=== PATIENT | male | born 1960 | race Caucasian/White ===

== ENCOUNTER 2018-01-15 15:00 | Emergency (ER) | payer OTHER ==
[~2018-01-15] VITALS: Ht 172.7 cm; Wt 100.0 kg
[~2018-01-15 15:00] MED LIST: ORPH100T2 PO; PRED10PA2 PO
[2018-01-15 15:19] VITALS: BP 147/76; PULSE 82; RESP 16; TEMP 98.4; O2SAT 98
--- NOTE | 2018-01-15 16:27 | RADRPT ---
EXAM DATE/TIME: 01/15/2018 15:44 [place] COMPARISON: No previous studies available for comparison. INDICATIONS : Pain in left ankle, bruising to medial and lateral portions of ankle. MEDICAL HISTORY : None. SURGICAL HISTORY : None. ENCOUNTER: Initial ACUITY: 1 day PAIN SCORE: 6/10 LOCATION: Left ankle FINDINGS: Three view exam was performed of the left ankle. Talocalcaneal screw fixation with associated bony re modeling. No acute bone fracture is noted. Mild degenerative changes of the talonavicular joint. Join t spaces are otherwise maintained. Soft tissue prominence overlying the dorsum of the foot. CONCLUSION: 1. Postsurgical features of talocalcaneal screw fixation, as above. 2. No acute fracture or dislocation. Samir Marie MD on January 15, 2018 at 16:21 Board Certified Radiologist. This report was verified electronically.
[2018-01-15] MEDS ORDERED: CALC1TAB12 PO (18:05)
[2018-01-15] MEDS ORDERED: ANDR1.62 TOPICAL (18:05)
[2018-01-15] MEDS ORDERED: IBUP-232 PO (18:05)
[2018-01-15] MEDS ORDERED: AMLO10TA2 PO (18:05)
[2018-01-15] MEDS ORDERED: LISI10TA3 PO (18:05)
[2018-01-15] MEDS ORDERED: MORP1TAB25 PO (18:05)
[2018-01-15] MEDS ORDERED: HYDR-3366 PO (18:05)
[2018-01-15] MEDS ORDERED: ASPI-516 CHEW (18:05)
[2018-01-15] MEDS ORDERED: ATOR10TA15 PO (18:05)
[2018-01-15] MEDS ORDERED: GABA600T PO (18:05)
[2018-01-15 18:06] VITALS: BP 144/75; PULSE 83; RESP 15; TEMP 98.1; O2SAT 100
--- NOTE | 2018-01-15 18:21 | PD ---
HPI Chief Complaint: Pain: Acute or Chronic Time Seen by Provider: 18:01 Travel History International Travel<30 days: No Contact w/Intl Traveler<30days: No Traveled to known affect area: No History of Present Illness HPI 57-year-old male presents emergency department for evaluation of left ankle pain that is been persistent since Tuesday. States that his ankle actually started swelling Tuesday and became tender . Says that the medial aspect of the ankle became dark and bruised appearing so he decided to come to emergency department for evaluation. Says he does have some mild pain associated with swelling. No palliative or provocative factors. Patient does not remember any inciting events. Denies any injury. Says he does have a history of surgery to the ankle denies any complications as a result. Denies shortness of breath or chest pain. Says that he normally walks with a cane. Patient is able to flex and extend his ankle but says he is normally unable to perform lateral rotation of his ankle. He denies any numbness or tingling. PFSH Past Medical History Arthritis: Yes Heart Rhythm Problems: No Cardiac Catheterization: No Cardiovascular Problems: Yes High Cholesterol: Yes Congestive Heart Failure: No Diabetes: No Headaches: Yes (RELATED TO NECK) Hypertension: Yes Neurologic: Yes (neck sx) Past Surgical History Abdominal Surgery: Yes (APPENDECTOMY) Appendectomy: Yes (AT 9 YEARS OF AGE) Coronary Artery Bypass Graft: No Other Surgery: Yes (RECTAL FISTULA REPAIRED X 2-2002, 3004) Social History Alcohol Use: No Tobacco Use: No Substance Use: No Allergies-Medications (Allergen,Severity, Reaction): Coded Allergies: No Known Allergies (Verified Adverse Reaction, Unknown, 01/15/18) Reported Meds & Prescriptions Reported Meds & Active Scripts Active Orphenadrine CR (Orphenadrine Citrate) 100 Mg Tab 100 Mg PO Q12HR Prednisone (48) 10 mg tab Dose Pack (Prednisone) 10 Mg Dspk 10 Mg PO DIRECTED Reported Calcium 500 +D (Calcium Carbonate-Cholecalciferol) 500-400 Mg-Unit Tab 1 Tab PO BID Aspirin 81 Mg Chew 81 Mg CHEW DAILY Atorvastatin (Atorvastatin Calcium) 10 Mg Tab 10 Mg PO HS Ibuprofen 600 Mg Tab 600 Mg PO TID Gabapentin 600 Mg Tab 600 Mg PO TID Androgel Pump Topical (Testosterone) 20.25/1.25 Gel 20.25 Mg TOPICAL DAILY [facility] (Hydrocodone-Acetaminophen) 10-325 Mg Tab 1 Tab PO Q6H PRN Morphine ER (Morphine Sulfate) 30 Mg Tab 30 Mg PO BID Amlodipine (Amlodipine Besylate) 10 Mg Tab 10 Mg PO DAILY Lisinopril 10 Mg Tab 10 Mg PO DAILY Review of Systems Except as stated in HPI: all other systems reviewed are Neg Physical Exam Narrative GENERAL: Well-nourished, well-developed patient. SKIN: Focused skin assessment warm/dry. HEAD: Normocephalic. EYES: No scleral icterus. No injection or drainage. NECK: Supple, trachea midline. No JVD or lymphadenopathy. CARDIOVASCULAR: Regular rate and rhythm without murmurs, gallops, or rubs. RESPIRATORY: Breath sounds equal bilaterally. No accessory muscle use. MUSCULOSKELETAL: Neurovascular intact bilateral lower extremities. Left medial aspect of the ankle with ecchymosis and tenderness palpation directly over and surrounding the bony prominence. No calf tenderness. No tenderness palpation of the Achilles. BACK: Nontender without obvious deformity. No CVA tenderness. Data Data Last Documented VS Vital Signs Date Time Temp Pulse Resp B/P (MAP) Pulse Ox O2 Delivery O2 Flow Rate FiO2 01/15/18 18:47 98.1 79 144/77 (99) 100 01/15/18 18:06 15 01/15/18 18:06 Room Air Orders Orders Ankle, Complete ([id number]) (01/15/18 ) Support Splint (01/15/18 18:13) Ed Discharge Order (01/15/18 18:21) MDM Medical Decision Making Medical Screen Exam Complete: Yes Emergency Medical Condition: Yes Differential Diagnosis Left ankle fracture, left ankle sprain, left ankle strain Narrative Course 57-year-old male presents emergency department for evaluation of left ankle pain that is been persistent since Tuesday. States that his ankle actually started swelling Tuesday and became tender . Says that the medial aspect of the ankle became dark and bruised appearing so he decided to come to emergency department for evaluation. Says he does have some mild pain associated with swelling. No palliative or provocative factors. Patient does not remember any inciting events. Denies any injury. Says he does have a history of surgery to the ankle denies any complications as a result. Denies shortness of breath or chest pain. Says that he normally walks with a cane. Patient is able to flex and extend his ankle but says he is normally unable to perform lateral rotation of his ankle. He denies any numbness or tingling. Vital signs stable. Exam findings consistent with an ankle sprain. The tenderness palpation of the calf or Achilles. No tenderness in the soft tissue proximal to the medial malleolus. Neurovascular intact. Last Impressions Ankle X-Ray 01/15/18 0000 Signed Impressions: Service Date/Time: Monday, January 15, 2018 15:44 - CONCLUSION: 1. Postsurgical features of talocalcaneal screw fixation, as above. 2. No acute fracture or dislocation. Samir Marie MD Stirrup splint placed. Advised follow-up with a extension division director for further evaluation. He is appreciative for the care he has received today. Diagnosis Primary Impression: Left ankle strain Qualified Codes: S96.912A - Strain of unspecified muscle and tendon at ankle and foot level, left foot, initial encounter Referrals: Ceiling Installer Additional Instructions: Use ice or heat for symptom relief. If no contraindications, you may use Tylenol or Motrin per package instructions for your pain. Elevate the joint above the heart to reduce swelling. You may use compression with Perfecto wrap or similar to reduce swelling. He may use the stirrup splint as needed for pain. If symptoms persist or worsen, return to the emergency department. Follow up with your primary care physician within 2 days. Disposition: 01 DISCHARGE HOME Condition: Stable Linda Treviño Jan 15, 2018 18:21
[2018-01-15 18:47] VITALS: BP 144/77; TEMP 98.1
== END 2018-01-15 18:52 | disposition home or self-care (01) ==
LOC: NEPC 15:00
DX: S96.912A Strain of unspecified muscle and tendon at ankle and foot level, left foot, initial encounter (principal); X58.XXXA Exposure to other specified factors, initial encounter; E78.00 Pure hypercholesterolemia, unspecified; I10 Essential (primary) hypertension
CPT/HCPCS: 73610; 99283; L1906